=== PATIENT | male | born 1990 | race American Indian/Alaskan Native ===

== ENCOUNTER 2016-12-15 05:53 | Emergency (ER) | payer OTHER ==
[2016-12-15 06:12] VITALS: BP 127/75
[2016-12-15] MEDS ORDERED: ROBITUSSIN DM PO ONE (08:12)
[2016-12-15] MEDS ORDERED: MOTRIN PO ONE (08:12)
--- NOTE | 2016-12-15 08:13 | Emergency Department Report ---
- General Chief Complaint: Upper Respiratory Infection Stated Complaint: CP/COLD SX/NATE/R ELBOW PAIN Time Seen by Provider: 12/15/16 07:41 Source: patient Mode of arrival: Ambulatory Limitations: No Limitations - History of Present Illness Initial Comments: 26-year-old male with past medical history none presents complaining of minor cough the last 4-5 days. Denies any productive sputum denies any fevers chills no nausea no vomiting states that he feels some upper airway congestion. Also states that incidentally he was playing soccer 3 days ago and fell onto his right elbow while playing soccer. States that he came in primarily because his right elbow was bothering him. He denies any lacerations no other injures sustained. Currently denies any chest pain or shortness of breath no palpitations. Denies any sore throat or earache. Denies any sick contacts at home but has multiple sick contacts at work similar symptoms. Any body aches. No recent travel. MD Complaint: cough Onset/Timin -: days(s) Severity: moderate Quality: aching Improves With: nothing Context: sick contacts Associated Symptoms: cough - Related Data Previous Rx's Medication Instructions Recorded Last Taken Type Acetamin/Codeine 120-12Mg/5 ml 5 ml PO TID PRN #30 ml 12/11/14 Unknown Rx [Tylenol/Codeine] Cetirizine HCl [Allergy Relief] 10 mg PO DAILY #30 tablet 12/11/14 Unknown Rx Fluticasone Propionate [Flonase] 100 mcg NS QDAY #1 spray.susp 12/11/14 Unknown Rx Ibuprofen [Motrin] 800 mg PO Q8H PRN #20 tablet 12/11/14 Unknown Rx ALBUTEROL Inhaler [ProAir HFA 2 puff IH QID PRN #1 inhalation 12/15/16 Unknown Rx Inhaler] Naproxen [Naproxen TAB] 250 mg PO BID PRN #20 tablet 12/15/16 Unknown Rx Phenylephrine/Dm/Acetaminop/GG 10 ml PO Q4H PRN #1 liquid 12/15/16 Unknown Rx [Mucinex Szwo-Ejd-Juzmxxfzkt Lq] Allergies Allergy/AdvReac Type Severity Reaction Status Date / Time No Known Allergies Allergy Unverified 02/12/14 19:44 ED Review of Systems ROS: Stated complaint: CP/COLD SX/NATE/R ELBOW PAIN Other details as noted in HPI Constitutional: denies: chills, fever Eyes: denies: eye pain, eye discharge, vision change ENT: denies: ear pain, throat pain Respiratory: denies: cough, shortness of breath, wheezing Cardiovascular: denies: chest pain, palpitations Endocrine: no symptoms reported Gastrointestinal: denies: abdominal pain, nausea, diarrhea Genitourinary: denies: urgency, dysuria Musculoskeletal: as per HPI. denies: back pain, joint swelling, arthralgia Skin: denies: rash, lesions Neurological: denies: headache, weakness, paresthesias Psychiatric: denies: anxiety, depression Hematological/Lymphatic: denies: easy bleeding, easy bruising ED Past Medical Hx - Past Medical History Previous Medical History?: No - Surgical History Past Surgical History?: No - Social History Smoking Status: Never Smoker Substance Use Type: None - Medications Home Medications: Home Medications Medication Instructions Recorded Confirmed Last Taken Type Acetamin/Codeine 120-12Mg/5 ml 5 ml PO TID PRN #30 ml 12/11/14 Unknown Rx [Tylenol/Codeine] Cetirizine HCl [Allergy Relief] 10 mg PO DAILY #30 tablet 12/11/14 Unknown Rx Fluticasone Propionate [Flonase] 100 mcg NS QDAY #1 spray.susp 12/11/14 Unknown Rx Ibuprofen [Motrin] 800 mg PO Q8H PRN #20 tablet 12/11/14 Unknown Rx ALBUTEROL Inhaler [ProAir HFA 2 puff IH QID PRN #1 inhalation 12/15/16 Unknown Rx Inhaler] Naproxen [Naproxen TAB] 250 mg PO BID PRN #20 tablet 12/15/16 Unknown Rx Phenylephrine/Dm/Acetaminop/GG 10 ml PO Q4H PRN #1 liquid 12/15/16 Unknown Rx [Mucinex Glkq-Evy-Qhepkiqsrk Lq] ED Physical Exam - General Limitations: No Limitations General appearance: alert, in no apparent distress - Head Head exam: Present: atraumatic, normocephalic - Eye Eye exam: Present: normal appearance, PERRL, EOMI - ENT ENT exam: Present: mucous membranes moist - Neck Neck exam: Present: normal inspection - Respiratory Respiratory exam: Present: normal lung sounds bilaterally. Absent: respiratory distress - Cardiovascular Cardiovascular Exam: Present: regular rate, normal rhythm. Absent: systolic murmur, diastolic murmur, rubs, gallop - GI/Abdominal GI/Abdominal exam: Present: soft, normal bowel sounds - Rectal Rectal exam: Present: deferred - Extremities Exam Extremities exam: Present: normal inspection - Expanded Upper Extremity Exam Right Shoulder Exam: Present: normal inspection, full ROM Upper Arm exam: Present: normal inspection, full ROM Elbow exam: Present: normal inspection, full ROM, tenderness (very minor tenderness lateral elbow region. Range of motion flexion and extension pronation supination fully intact against resistance right elbow) Forearm Wrist exam: Present: normal inspection, full ROM Hand Wrist exam: Present: normal inspection, full ROM Neuro motor exam: Present: wrist extension intact, thumb opposition intact, thumb IP flexion intact, thumb adduction intact, fingers 2-5 abduction intact Neurosensory exam: Present: radial nerve intact, ulnar nerve intact, median nerve intact Vascular: Present: normal capillary refill, radial pulse, brachial pulse, ulnar pulse (distal pulses intact) - Back Exam Back exam: Present: normal inspection, full ROM - Neurological Exam Neurological exam: Present: alert, oriented X3, CN II-XII intact, normal gait - Psychiatric Psychiatric exam: Present: normal affect, normal mood - Skin Skin exam: Present: warm, dry, intact, normal color. Absent: rash ED Course Vital Signs 12/15/16 06:07 Temperature 99.3 F Pulse Rate 68 Respiratory 18 Rate Blood Pressure 127/75 O2 Sat by Pulse 100 Oximetry ED Medical Decision Making - Medical Decision Making A/P: Upper respiratory infection, viral syndrome, musculoskeletal right elbow pain/sprain 1-chest x-ray within normal limits EKG within normal limits, patient has no cardiac risk factors or family history of MD and denies any chest pain was primarily complaining of upper airway congestion and cough 2-right elbow x-ray within normal limits 3-RICE therapy, Teja wrap, naproxen 4-Mucinex and albuterol inhaler for respiratory symptoms 5- primary care doctor follow-up Critical care attestation.: If time is entered above; I have spent that time in minutes in the direct care of this critically ill patient, excluding procedure time. ED Disposition Clinical Impression: Upper respiratory infection Qualifiers: URI type: unspecified URI Qualified Code(s): J06.9 - Acute upper respiratory infection, unspecified Sprain of elbow, right Qualifiers: Encounter type: initial encounter Qualified Code(s): S53.401A - Unspecified sprain of right elbow, initial encounter Disposition: DISCHARGED TO HOME OR SELFCARE Is pt being admited?: No Does the pt Need Aspirin: No Condition: Stable Instructions: Elbow Sprain (ED), Upper Respiratory Infection (ED), Cold Symptoms (ED) Prescriptions: ALBUTEROL Inhaler [ProAir HFA Inhaler] 2 puff IH QID PRN #1 inhalation PRN Reason: Shortness Of Breath Naproxen [Naproxen TAB] 250 mg PO BID PRN #20 tablet PRN Reason: Pain Phenylephrine/Dm/Acetaminop/GG [Mucinex Onxo-Vzk-Pbuqpogchf Lq] 10 ml PO Q4H PRN #1 liquid PRN Reason: Cough Referrals: PRIMARY CAREMD [Primary Care Provider] - 3-5 Days DWIGHT SCHNEIDER MD [Staff Physician] - 3-5 Days [facility] [Outside] - 3-5 Days Forms: Work/School Release Form(ED) Time of Disposition: 09:09
--- NOTE | 2016-12-15 09:00 | XRay Report ---
ROUTINE CHEST, TWO VIEWS: HISTORY: Shortness of breath, pneumonia. The trachea, heart, mediastinal contour, lung carmona and bony thorax are unremarkable. IMPRESSION: Unremarkable chest x-ray.
--- NOTE | 2016-12-15 09:00 | XRay Report ---
RIGHT ELBOW THREE VIEWS: 12/15/16 05:53:00 CLINICAL: Fall and pain. FINDINGS: Normal bones, joints and soft tissues. No fracture or dislocation. IMPRESSION: Normal.
== END 2016-12-15 09:21 | disposition home or self-care (01) ==
LOC: ED 05:53
DX: S53.401A Unspecified sprain of right elbow, initial encounter (principal); J06.9 Acute upper respiratory infection, unspecified; X58.XXXA Exposure to other specified factors, initial encounter; Y93.9 Activity, unspecified; Y92.9 Unspecified place or not applicable; Y99.9 Unspecified external cause status
CPT/HCPCS: 71020; 93005; 93010; 99283

== ENCOUNTER 2017-04-10 03:40 | Emergency (ER) | payer OTHER ==
[2017-04-10] MEDS ORDERED: TYLENOL PO ONE (04:38)
[2017-04-10] MEDS ORDERED: NORCO 7.5/325 PO ONE (08:14)
[2017-04-10] MEDS ORDERED: BOOSTRIX IM ONE (08:14)
[2017-04-10] MEDS ORDERED: XYLOCAINE 1% 20 mL INFILTRATI ONE (08:14)
[2017-04-10] MEDS ORDERED: XYLOCAINE 1% MPF 5 mL INFILTRATI ONE (08:23)
[2017-04-10] MEDS ORDERED: XYLOCAINE 1% MPF 5 mL ONE (08:24)
[2017-04-10] MEDS ORDERED: POLYSPORIN TP ONE (09:25)
--- NOTE | 2017-04-10 09:32 | Emergency Department Report ---
ED Laceration HPI - HPI Chief Complaint: Wound/Laceration Stated Complaint: LIP LACERATIONS Occurred When: Today Location: Head (lip laceration) Severity: mild Tetanus Status: Unknown Laceration Symptoms: Yes Pain, No Foreign Body Sensation, No Numbness, No Weakness Other History: 26 year old male presents to ED with left sided upper lip laceration just [employer]. patient states he fell and tripped down stairs around 3am this morning. patient is stable, neurologically intact and in no acute distress. patient denies trauma to head, headache, N/V, syncope, LOC. ED Review of Systems ROS: Stated complaint: LIP LACERATIONS Other details as noted in HPI Constitutional: denies: chills, fever Eyes: denies: eye pain, eye discharge, vision change ENT: other (lip laceration). denies: ear pain, throat pain Respiratory: denies: cough, shortness of breath, wheezing Cardiovascular: denies: chest pain, palpitations Endocrine: no symptoms reported Gastrointestinal: denies: abdominal pain, nausea, diarrhea Genitourinary: denies: urgency, dysuria Musculoskeletal: denies: back pain, joint swelling, arthralgia Skin: denies: rash, lesions Neurological: denies: headache, weakness, paresthesias Psychiatric: denies: anxiety, depression Hematological/Lymphatic: denies: easy bleeding, easy bruising ED Past Medical Hx - Past Medical History Previous Medical History?: No - Surgical History Past Surgical History?: No - Social History Smoking Status: Never Smoker Substance Use Type: None - Medications Home Medications: Home Medications Medication Instructions Recorded Confirmed Last Taken Type Acetamin/Codeine 120-12Mg/5 ml 5 ml PO TID PRN #30 ml 12/11/14 Unknown Rx [Tylenol/Codeine] Cetirizine HCl [Allergy Relief] 10 mg PO DAILY #30 tablet 12/11/14 Unknown Rx Fluticasone Propionate [Flonase] 100 mcg NS QDAY #1 spray.susp 12/11/14 Unknown Rx Ibuprofen [Motrin] 800 mg PO Q8H PRN #20 tablet 12/11/14 Unknown Rx ALBUTEROL Inhaler [ProAir HFA 2 puff IH QID PRN #1 inhalation 12/15/16 Unknown Rx Inhaler] Naproxen [Naproxen TAB] 250 mg PO BID PRN #20 tablet 12/15/16 Unknown Rx Phenylephrine/Dm/Acetaminop/GG 10 ml PO Q4H PRN #1 liquid 12/15/16 Unknown Rx [Mucinex Mehd-Twt-Dfgzwymkdw Lq] Cephalexin [Keflex] 500 mg PO Q12HR #10 cap 04/10/17 Unknown Rx Laceration Physical Exam - Exam General: Vital signs noted. No distress. Alert and acting appropriately. Laceration Location: Other (left upper lip on outer oral mucosa) Laceration Exam: Yes Normal Distal CMS, No Foreign Body, No Exposed Tendon, Vessel, or Nerve, No Tendon Injury ED Course Vital Signs 04/10/17 04/10/17 04:32 04:45 Temperature 98.1 F Pulse Rate 91 H Respiratory 18 Rate Blood Pressure 127/86 O2 Sat by Pulse 98 Oximetry - Laceration /Wound Repair Left Upper Lateral Face Wound Location: face (lip) Wound Length (cm): 2 Wound's Depth, Shape: linear Wound Explored: clean Irrigated w/ Saline (ccs): 50 Betadine Prep?: Yes Anesthesia: 1% Lidocaine Volume Anesthetic (ccs): 5 Wound Debrided: moderate Wound Repaired With: sutures Suture Size/Type: 5:0, nylon Number of Sutures: 3 Layer Closure?: No Sterile Dressing Applied?: Yes (bacitracin) Progress: patient tolerated procedure well. bleeding controlled. ED Medical Decision Making - Medical Decision Making 26 year old male presents to ED with upper lip laceration. 3 absorbable 5-0 nylon sutures placed under sterile technique. antibiotic ointment applied and patient will be placed on PO antibiotics. patient is stable, neurologically intact and in no acute distress. patient recieved tetanus shot and pain medication during ED visit. Critical care attestation.: If time is entered above; I have spent that time in minutes in the direct care of this critically ill patient, excluding procedure time. ED Disposition Clinical Impression: Lip laceration Qualifiers: Encounter type: initial encounter Qualified Code(s): S01.511A - Laceration without foreign body of lip, initial encounter Disposition: DISCHARGED TO HOME OR SELFCARE Is pt being admited?: No Does the pt Need Aspirin: No Condition: Stable Instructions: Suture Care (ED) Prescriptions: Cephalexin [Keflex] 500 mg PO Q12HR #10 cap Referrals: PRIMARY CARE, [Primary Care Provider] - 3-5 Days Forms: Work/School Release Form(ED)
[2017-04-10] MEDS ORDERED: TRIPLE ANTIBIOTIC TP ONE ×2 (09:34→09:36)
[2017-04-10 09:47] VITALS: BP 122/80
== END 2017-04-10 09:46 | disposition home or self-care (01) ==
LOC: ED 03:40
DX: S01.511A Laceration without foreign body of lip, initial encounter (principal); W10.8XXA Fall (on) (from) other stairs and steps, initial encounter; Y93.89 Activity, other specified; Y99.8 Other external cause status; Y92.89 Other specified places as the place of occurrence of the external cause
CPT/HCPCS: 90471; 90715; A6250

== ENCOUNTER 2019-10-29 13:52 | Emergency (ER) | payer OTHER | END 2019-10-29 17:17 | disposition home or self-care (01) | LOC: ED 13:52 | CPT/HCPCS: 71046 ==